=== PATIENT | male | born 1950 | race Caucasian/White ===

== ENCOUNTER → 2017-11-18 | Outpatient (CLI) | payer OTHER ==
[2017-11-18 10:16] LABS: CALCIUM 9.4 mg/dL (8.5-10.1); CREATININE 1.2 mg/dL (0.7-1.3); GFR 60.6; POTASSIUM 4.8 mmol/L (3.5-5.1)
== END | disposition home or self-care (01) ==
LOC: LAB 09:43
PROVIDERS: ATTEND Family Medicine
DX: E78.5 Hyperlipidemia, unspecified (principal)
CPT/HCPCS: 36415; 80048; 80061

== ENCOUNTER → 2018-03-01 | Outpatient (CLI) | payer OTHER ==
[2018-03-01 20:09] LABS: HEMOGLOBIN A1C 7.9 % (4.8-5.6)
== END | disposition home or self-care (01) ==
LOC: LAB 10:17
PROVIDERS: ATTEND Family Medicine
DX: E11.42 Type 2 diabetes mellitus with diabetic polyneuropathy (principal)
CPT/HCPCS: 36415; 83036

== ENCOUNTER → 2019-01-12 | Outpatient (CLI) | payer OTHER ==
[2019-01-12 11:44] LABS: ALBUMIN 3.6 g/dL (3.4-5.0); ALBUMIN/GLOBULIN RATIO 0.9 (1.0-1.7); CALCIUM 9.3 mg/dL (8.5-10.1); CREATININE 1.1 mg/dL (0.7-1.3); GFR 66.8; POTASSIUM 4.7 mmol/L (3.5-5.1); TOTAL BILIRUBIN 0.3 mg/dL (0.2-1.0); TOTAL PROTEIN 7.4 g/dL (6.4-8.2)
[2019-01-13 00:06] LABS: HEMOGLOBIN A1C 7.9 % (4.8-5.6)
== END | disposition home or self-care (01) ==
LOC: LAB 11:07
PROVIDERS: ATTEND Family Medicine
DX: Z12.5 Encounter for screening for malignant neoplasm of prostate (principal); E11.42 Type 2 diabetes mellitus with diabetic polyneuropathy; I10 Essential (primary) hypertension
CPT/HCPCS: 36415; 80053; 80061; 83036; G0103

== ENCOUNTER → 2019-05-15 | Outpatient (CLI) | payer OTHER ==
[~2019-05-15] MED LIST: CONTRAST GIVEN MC PRN; CRESTOR20 MG PO; IOHEXOL 350 MG/ML 100 ML VIAL. IV ONE; LISI1TAB19 PO; RIVA20TA2 PO; SITA1TAB11 PO
[2019-05-15 08:01] LABS: GFR 74.5
--- NOTE | 2019-05-15 13:40 | RAD ---
CTA of the chest and abdomen without comparison for abdominal aortic aneurysm. TECHNIQUE: Contiguous helical 1.5 mm axial images are obtained through the chest and abdomen following administration of IV contrast in the systemic arterial phase. Sagittal and coronal MIPS are evaluated. Nonvascular findings: There are a few small pretracheal lymph nodes, and there are several calcified subcarinal lymph nodes consistent with antecedent granulomatous disease. No suspicious mediastinal, hilar, or axillary adenopathy is seen. Central airways are patent. Heart size is enlarged. In the abdomen, evaluation of the solid organ parenchyma is somewhat limited by the arterial phase of contrast administration. Nevertheless, no gross abnormal abnormality's are identified within the liver, spleen, gallbladder, or bilateral adrenal glands. Incidentally noted is a simple appearing 2 cm exophytic cyst arising from the inferior pole the right kidney consistent with Bosniak 1. No further follow-up is required. Within the head of the pancreas, there is a 1.1 cm hypodense lesion which is incompletely characterized on the current exam and may be cystic or solid. Pancreatic neoplasm cannot be excluded, and this finding could be better evaluated with abdominal MRI with and without contrast. No suspicious abdominal or retroperitoneal adenopathy is seen. Innumerable sigmoid diverticula are present. The entirety of the sigmoid is not included on the examination. There is no evidence of acute diverticulitis. No enteric contrast is present, however no other gross abnormalities of the enteric structures are identified. There are multilevel degenerative changes throughout the lumbar spine, with large flowing anterior osteophytes throughout the thoracic and lower cervical spine. Vascular findings: There is fusiform aneurysmal dilatation of the ascending aorta to 4.6 cm in diameter. No evidence of mural hematoma, dissection, or rupture. The descending thoracic aorta and abdominal aorta are nonaneurysmal. There is mild atherosclerosis in the iliac arteries. Superior mesenteric, inferior mesenteric, and celiac arteries are patent as are bilateral renal arteries. Coronary artery calcifications are seen in multiple distributions. IMPRESSION: 1. 4.6 cm aneurysmal dilatation of the ascending aorta. 2. 1.1 cm hypodensity within the head of the pancreas, incompletely characterized. Pancreatic neoplasm cannot be excluded. Further evaluation MRI with and without gadolinium is recommended. 3. Other chronic changes as described. Electronically signed by: Kings Martell MD (05/15/2019 1:37 PM) [facility]
== END | disposition home or self-care (01) ==
LOC: CT 07:07
PROVIDERS: ATTEND Internal Medicine Cardiovascular Disease
DX: I71.4 Abdominal aortic aneurysm, without rupture (principal); I51.7 Cardiomegaly; N28.1 Cyst of kidney, acquired; K57.30 Diverticulosis of large intestine without perforation or abscess without bleeding; M25.78 Osteophyte, vertebrae; M47.816 Spondylosis without myelopathy or radiculopathy, lumbar region; I70.203 Unspecified atherosclerosis of native arteries of extremities, bilateral legs; I25.10 Atherosclerotic heart disease of native coronary artery without angina pectoris
CPT/HCPCS: 36415; 71275; 74175; 82565; Q9967

== ENCOUNTER → 2019-10-17 | Outpatient (CLI) | payer OTHER ==
[~2019-10-17] MED LIST changes: -CONTRAST GIVEN MC PRN; -IOHEXOL 350 MG/ML 100 ML VIAL. IV ONE; -LISI1TAB19 PO; +LISI1TAB37 PO
--- NOTE | 2019-10-17 09:59 | CARD ---
MR#: [id number] Date of Study: 10/17/2019 Ordering Physician: ELISABETH MOROCHO, Referring Physician: ELISABETH MOROCHO, Tech: Joanie Rojas BIANCA APPROVED REPORT EXAM: Two-dimensional and M-mode echocardiogram with Doppler and color Doppler. Other Information Quality : Fair Rhythm : Atrial Fibrillation/Aflutter INDICATION Cardiomyopathy 2D DIMENSIONS RVDd4.2 (2.9-3.5cm)Left Atrium(2D)4.4 (1.6-4.0cm) IVSd1.2 (0.7-1.1cm)Aortic Root(2D)4.2 (2.0-3.7cm) LVDd5.7 (3.9-5.9cm)LVOT Diameter2.4 (1.8-2.4cm) PWd1.2 (0.7-1.1cm)LVDs3.7 (2.5-4.0cm) FS (%) 35.5 %SV102.3 ml Aortic Valve AoV Peak Edward.152.5cm/sAoV VTI29.3cm AO Peak GR.9.3mmHgLVOT Peak Edward.87.4cm/s LVOT VTI 16.90cmAO Mean GR.5mmHg ADIS (VMAX)2.04lt7OZQ (VTI)2.57cm2 Mitral Valve MV E Bgxlmjzv46.8cm/sMV DECEL XCDM340sw MV A Xfbdbvdt57.9cm/sE/A Ratio2.8 Tricuspid Valve TR P. Xqafvgsw247xy/sRAP QPURSNQO8bcUh TR Peak Gr.53yoCgTFXS25jrYz LEFT VENTRICLE The left ventricle is normal size. There is mild concentric left ventricular hypertrophy. The left ve ntricular systolic function is normal and the ejection fraction is low normal. The Ejection Fraction is 50-55%. There is normal LV segmental wall motion. RIGHT VENTRICLE The right ventricle is mildly dilated. The right ventricular systolic function is normal. ATRIA The left atrium is mildly dilated. The coronary sinus is dilated. The right atrium is mildly dilated. The interatrial septum is intact with no evidence for an atrial septal defect or patent foramen oval e as noted on 2-D or Doppler imaging. AORTIC VALVE The aortic valve is calcified but opens well. Doppler and Color Flow revealed no significant aortic r egurgitation. There is no significant aortic valvular stenosis. MITRAL VALVE The mitral valve is mildly thickened but opens well. There is no evidence of mitral valve prolapse. T here is no mitral valve stenosis. Doppler and Color-flow revealed mild mitral regurgitation. TRICUSPID VALVE The tricuspid valve is normal in structure and function. Doppler and Color Flow revealed mild tricusp id regurgitation. The PA pressure was estimated at 44 mmHg. There is no tricuspid valve stenosis. PULMONIC VALVE The pulmonic valve is not well visualized. Doppler and Color Flow revealed no pulmonic valvular regur gitation. There is no pulmonic valvular stenosis. GREAT VESSELS The aortic root is normal in size. The ascending aorta is not well seen. The IVC is dilated. PERICARDIAL EFFUSION There is no evidence of significant pericardial effusion. Critical Notification Critical Value: No <Conclusion> The left ventricle is normal size. The left ventricular systolic function is normal and the ejection fraction is low normal. The Ejection Fraction is 50-55%. There is mild concentric left ventricular hypertrophy. Doppler and Color Flow revealed no significant aortic regurgitation. There is no significant aortic valvular stenosis. Doppler and Color-flow revealed mild mitral regurgitation. Doppler and Color Flow revealed mild tricuspid regurgitation. The PA pressure was estimated at 44 mmHg. Signed by : Bao Banuelso MD Electronically Approved : 10/17/2019 09:58:44
== END | disposition home or self-care (01) ==
LOC: ECHO 07:41
PROVIDERS: ATTEND Internal Medicine Cardiovascular Disease
DX: I08.3 Combined rheumatic disorders of mitral, aortic and tricuspid valves (principal); I42.9 Cardiomyopathy, unspecified
CPT/HCPCS: 93306

== ENCOUNTER → 2020-11-13 | Outpatient (CLI) | payer OTHER ==
[2020-11-13 13:29] LABS: ALBUMIN 3.6 g/dL (3.4-5.0); CALCIUM 9.1 mg/dL (8.5-10.1); GFR 74.1; POTASSIUM 4.3 mmol/L (3.5-5.1); TOTAL BILIRUBIN 0.5 mg/dL (0.2-1.0); TOTAL PROTEIN 7.1 g/dL (6.4-8.2)
[2020-11-13 13:37] LABS: BASO % 1 % (0-3); EOS # 0.2 x10^3/uL (0.0-0.7); EOS % 4 % (0-3); HEMATOCRIT 40.3 % (39.0-53.0); HEMOGLOBIN 13.7 g/dL (13.0-17.5); LYMPH # 1.5 x10^3/uL (1.0-4.8); LYMPH % 27 % (24-48); MEAN CORPUSCULAR HEMOGLOBIN 32 pg (25-35); MEAN CORPUSCULAR HGB CONC 34 g/dL (31-37); MEAN CORPUSCULAR VOLUME 93 fL (79-100); MONO # 0.6 x10^3/uL (0.0-1.1); MONO % 11 % (0-9); NEUT # 3.1 x10^3uL (1.8-7.7); NEUT % 57 % (31-73); PLATELET COUNT 191 x10^3/uL (140-400); RED BLOOD COUNT 4.33 x10^6/uL (4.30-5.70); RED CELL DISTRIBUTION WIDTH 13.1 % (11.5-14.5); WHITE BLOOD COUNT 5.4 x10^3/uL (4.0-11.0)
[2020-11-14 05:08] LABS: HEMOGLOBIN A1C 9.9 % (4.8-5.6)
== END ==
LOC: LAB 09:04
PROVIDERS: ATTEND Hospitalist
DX: E11.9 Type 2 diabetes mellitus without complications (principal)
CPT/HCPCS: 36415; 80053; 83036; 85025

== ENCOUNTER → 2020-12-09 | Outpatient (CLI) | payer OTHER ==
--- NOTE | 2020-12-09 17:30 | RAD ---
XR CHEST 2V CLINICAL INDICATIONS: Reason: LOWER RESPIRATORY INFECTION COMPARISON: No previous chest x-ray available. Findings: No acute lung infiltrate or pleural effusion or pulmonary edema or pneumothorax is seen. In the lateral view, there is nodular density projected over the upper thoracic spine measuring 19 mm. Cardiomegaly is evident. The pulmonary vasculature, mediastinum and both valerie are unremarkable. Old h ealed right fifth rib fracture is apparent. Diffuse idiopathic skeletal hyperostosis of the thoracic spine is apparent. IMPRESSION: No acute lung infiltrate. Cardiomegaly. In the lateral view, there is 19 mm nodular density projected over the upper thoracic spine. A lung n odule is possible. This may be further evaluated with outpatient chest CT imaging. Electronically signed by: Dewayne Lara MD (12/09/2020 5:28 PM) [id number]
== END ==
LOC: PMG 16:45
PROVIDERS: ATTEND Nurse Practitioner Family
DX: J22 Unspecified acute lower respiratory infection (principal); J98.4 Other disorders of lung; M48.14 Ankylosing hyperostosis [Forestier], thoracic region; I51.7 Cardiomegaly
CPT/HCPCS: 71046

== ENCOUNTER → 2020-12-30 | Outpatient (CLI) | payer OTHER ==
--- NOTE | 2020-12-30 13:59 | RAD ---
EXAMINATION: CT Chest Without IV contrast. INDICATION:70 years, Male, abnormal chest radiograph with pulmonary nodule. Further evaluation COMPARISON: Chest radiograph dated 12/09/2020. TECHNIQUE: Spiral CT was obtained from the jugular notch through the posterior costophrenic recess. S agittal and coronal reformats were obtained. Exposure: One or more of the following individualized dose reduction techniques were utilized for thi s examination: 1. Automated exposure control 2. Adjustment of the mA and/or kV according to patient size 3. Use of iterative reconstruction technique. FINDINGS: LUNGS/PLEURA: Central airways are patent. No focal consolidation, pleural effusion or pneumothorax. C alcified granuloma in the right middle lobe. Few 2-3 mm pulmonary nodules in the left lower and right upper lobes. For example pleural-based nodule in the left lower lobe (image 86), measures 3 mm. MEDIASTINUM: No pathologic mediastinal or hilar adenopathy. Multiple calcified mediastinal lymph node s. The thoracic aorta and pulmonary arteries are normal in caliber. Mild cardiomegaly. No pericardial effusion. Moderate calcified coronary atherosclerosis. Subcentimeter hypodense nodules in both thyro id lobes measuring up to 7 mm. Esophagus is unremarkable. AXILLA/SOFT TISSUE: No supraclavicular or axillary adenopathy. Regional soft tissues are within tonia l limits. UPPER ABDOMEN: Mild decreased attenuation of the liver parenchyma, may reflect fat infiltration. Two nonobstructing calculi in the upper pole left kidney measuring up to 3 mm, unchanged. Similar placido f at in the visualized central small bowel mesentery, nonspecific findings and can be seen in mesenteri c panniculitis. BONES: No evidence of acute fractures or aggressive osseous lesions. Multilevel degenerative changes in the spine. Previously seen 1.9 cm nodular opacity projected over the upper thoracic spine is likel y representing anterior osteophytes. IMPRESSION: 1. No suspicious pulmonary nodule. Previously seen 1.9 cm nodular opacity projected over the thoracic spine is likely representing osteophytes from the degenerative spinal disease. 2. Few scattered 2-3 mm pulmonary nodules in the left lower and right upper lobes. Fleischner Society guidelines for management of incidental pulmonary nodule (Radiology 2017):Multiple solid nodules < 6 mm: LOW-RISK patient (minimal or absent history of smoking and other known risk factors): No routine foll ow-up HIGH-RISK patient (history of smoking or other known risk factors): Optional CT at 12 months. 3. Punctate nonobstructing left nephrolithiasis, similar to prior exam. 4. Diffuse hepatic steatosis. 5. Other chronic/incidental findings, as above. Electronically signed by: Palma Gomez MD (12/30/2020 1:56 PM) [facility]
== END ==
LOC: CT 13:03
PROVIDERS: ATTEND Hospitalist
DX: R91.8 Other nonspecific abnormal finding of lung field (principal); J84.10 Pulmonary fibrosis, unspecified; I25.10 Atherosclerotic heart disease of native coronary artery without angina pectoris; I51.7 Cardiomegaly; R59.0 Localized enlarged lymph nodes; R93.89 Abnormal findings on diagnostic imaging of other specified body structures; N20.0 Calculus of kidney; K76.0 Fatty (change of) liver, not elsewhere classified
CPT/HCPCS: 71250

== ENCOUNTER → 2021-01-16 | Outpatient (CLI) | payer OTHER | LOC: LAB 10:08 | PROVIDERS: ATTEND Hospitalist | DX: Z20.822 Contact with and (suspected) exposure to COVID-19 (principal) | CPT/HCPCS: U0003 ==

== ENCOUNTER → 2021-03-11 | Day surgery (SDC) | payer OTHER ==
[~2021-03-11] MED LIST changes: +GLYCOPYRROLATE 1 MG/5 ML VIAL. ONE; +LIDOCAINE 2% PF 5 ML VIAL. ONE; +PROPOFOL 10,000 MCG/ML (20ML) VIAL IV ONE
[2021-03-11 11:16] VITALS: BP 137/103
== END | disposition home or self-care (01) ==
LOC: SURG 09:21
PROVIDERS: ATTEND Internal Medicine Gastroenterology
DX: Z12.11 Encounter for screening for malignant neoplasm of colon (principal); K63.5 Polyp of colon; K57.30 Diverticulosis of large intestine without perforation or abscess without bleeding; K63.89 Other specified diseases of intestine; I10 Essential (primary) hypertension; I48.91 Unspecified atrial fibrillation; E78.00 Pure hypercholesterolemia, unspecified; E11.9 Type 2 diabetes mellitus without complications; Z79.899 Other long term (current) drug therapy; Z98.890 Other specified postprocedural states; Z88.0 Allergy status to penicillin; Z72.89 Other problems related to lifestyle
CPT/HCPCS: 45385; 82947; J2001; J2704; J3490

== ENCOUNTER → 2021-06-09 | Outpatient (CLI) | payer BC ==
[2021-03-11 11:16] VITALS: BP 137/103
[~2021-06-09] MED LIST changes: -GLYCOPYRROLATE 1 MG/5 ML VIAL. ONE; -LIDOCAINE 2% PF 5 ML VIAL. ONE; -PROPOFOL 10,000 MCG/ML (20ML) VIAL IV ONE
--- NOTE | 2021-06-09 15:09 | RAD ---
EXAM: Right shoulder, 3 views. HISTORY: Pain. COMPARISON: None. FINDINGS: 3 views of the right shoulder obtained. There is no fracture, dislocation or subluxation. IMPRESSION: No acute osseous finding. Electronically signed by: Marielena Cohn MD (06/09/2021 3:07 PM) [id number]
== END ==
LOC: RAD 14:40
PROVIDERS: ATTEND Physician Assistant
DX: M25.511 Pain in right shoulder (principal)
CPT/HCPCS: 73030

== ENCOUNTER → 2021-06-19 | Outpatient (CLI) | payer BC ==
[2021-03-11 11:16] VITALS: BP 137/103
[~2021-06-19] MED LIST changes: +REGADENOSON 0.4 MG/5 ML DISP.SYRIN. IV ONE
--- NOTE | 2021-06-19 17:35 | RAD ---
MR#: [id number] Date of Study: 06/19/2021 Ordering Physician: ISSAC OCHOA, Referring Physician: CALVIN JUAREZ Tech: KATI Diop APPROVED REPORT Test Type: Pharmacological Stress Nurse/Tech: KATI Diop Test Indications: A Fib Cardiac History: Bradycardia Medications: see EHR Medical History: see EHR Resting ECG: Afib Resting Heart Rate: 42 bpm Resting Blood Pressure: 144/77mmHg Pretest Chest Pain: None Nurse/Tech Notes Consent: The procedure was explained to the patient in lay terms. Informed consent was witnessed. Buster eout was entered into [employer]. History and Stress Test performed by KATI Diop Pharm. Details Pharmacologic stress testing was performed using 0.4mg per 5ml of regadenoson given intravenously ove r 7-10 seconds. POST EXERCISE Max HR: 93 bpm Max Blood Pressure: 152/88mmHg Blood Pressure response to exercise: Normal blood pressure response during stress. Chest Pain: No. INTERPRETATION Stress EKG Conclusion: The resting EKG shows atrial fibrillation with nonspecific ST-T wave changes. The stress EKG shows no significant changes from baseline. No EKG evidence of stress-induced ischemia. Imaging Protocol IMAGE PROTOCOL: Rest Tc-99m/stress Tc-99m 1 day Rest: Stress: Viability: Radiopharm.Tc99m DufrsaghqNv84j Sestamibi Rvuc22iYv 33mCi Duration 15min. 10min. Img Date 06/19/2021 06/19/2021 Inj-Img Lpxd26hfq. 90min. Rest Admin Site:IV - Right AntecubitalAdministrator: KATI Diop Stress Admin Site: IV - Right AntecubitalAdministrator: KATI Diop STRESS DATA End Diast. Vol.199.0mlAv. Heart Rate58.0bpm End Syst. Vol.105.0mlCO Index BSA5.5L/min Myocardial Bkvt688.0gEject. Wqrujhek60.0% Stress Rates Pk. Fill Rate2.31EDV/secLVtime Pk. Fill 232.25msec Pk. Empty Rate2.48ESV/secLVtime Pk. Ahjpb908.19msec 1/3 Pk. Fill0.70EDV/sec Stress Scores Regional WT1.00Summed WT18.00 Regional WM0.00Summed WM14.00 LV Perfusion The stress scans show a distal anterior apical defect. The rest scans show a distal anterior apical defect. Nuclear imaging shows no reversible ischemia. Nuclear imaging shows a fixed defect in the anterior apical region consistent with a prior infarct. Wall Motion LV function is mildly decreased with an ejection fraction of 47%. LV Perf. Quant 17 Seg. SSS5.00 17 Seg. SRS8.00 17 Seg. SDS0.00 Stress Defect Extent (% LAD)14.40Rest Defect Extent (% LAD)20.60Rev. Defect Extent (% LAD)1.30 Stress Defect Extent (% LCX) 7.50Rest Defect Extent (% LCX)22.50Rev. Defect Extent (% LCX)0.00 Stress Defect Extent (% RCA)0.00Rest Defect Extent (% RCA)0.00Rev. Defect Extent (% RCA)0.00 Stress Defect Extent (% BERNICE)11.10Rest Defect Extent (% BERNICE)17.40Rev. Defect Extent (% BERNICE)0.40 Conclusion 1. Baseline atrial fibrillation with no EKG evidence of stress-induced ischemia. 2. Nuclear imaging shows no reversible ischemia. 3. Nuclear imaging shows a prior distal anterior apical infarct. 4. Decreased LV systolic function with an ejection fraction of 47%. 5. Moderate to moderately low risk Lexiscan nuclear stress test. Signed by : Bao Banuelos MD Electronically Approved : 06/19/2021 17:35:41
== END ==
LOC: NM 08:26
PROVIDERS: ATTEND Internal Medicine Cardiovascular Disease
DX: I48.91 Unspecified atrial fibrillation (principal); I51.9 Heart disease, unspecified; I49.3 Ventricular premature depolarization
CPT/HCPCS: 78452; 93017; A9500; J2785